=== PATIENT | male | born 1960 | race Caucasian/White ===

== ENCOUNTER 2016-09-30 05:49 | Day surgery (SDC) | payer BC, OTHER ==
[2016-09-28 11:32] VITALS: BMI 32.5
[2016-09-30] MEDS ORDERED: BUPIVACAINE HCL/PF 2.5 MG/ML - 30 ML VIAL IJ ONE (07:12)
[2016-09-30] MEDS ORDERED: MIDAZOLAM HCL 2 MG/2 ML SINGLE DOSE VIAL ONE ×4 (07:14→09:59)
[2016-09-30] MEDS ORDERED: DEXAMETHASONE SOD PHOSPHATE/PF 10 MG/ML SDV ONE (07:14)
[2016-09-30] MEDS ORDERED: BUPIVACAINE HCL/PF (5 MG/ML) 30 ML VIAL IJ ONE (07:15)
[2016-09-30] MEDS ORDERED: ceFAZolin SODIUM 1 GM VIAL IVPB ONE (08:07)
[2016-09-30] MEDS ORDERED: ONDANSETRON 4 MG/2 ML VIAL ONE (08:55)
[2016-09-30] MEDS ORDERED: PROPOFOL 20 ML ONE (10:05)
[2016-09-30] MEDS ORDERED: GUM MASTIC/STORAX/MSAL/ALCOHOL 1 DRP DROPSBTL MC ONE (10:27)
[2016-09-30] MEDS ORDERED: ONDANSETRON 4 MG/2 ML VIAL IVPUSH PRN (11:45)
[2016-09-30] MEDS ORDERED: oxyCODONE HCL 5 MG TABLET PO PRN (11:45)
[2016-09-30] MEDS ORDERED: PROMETHAZINE HCL 25 MG/1 ML VIAL IVPUSH PRN (11:46)
[2016-09-30 13:43] VITALS: TEMP 97.6
[2016-09-30 14:01] VITALS: BP 122/72; PULSE 68
--- NOTE | 2016-10-01 00:45 | OP ---
DATE OF OPERATION: 09/30/2016 PREOPERATIVE DIAGNOSIS: Left chronic recurrent quadriceps rupture. POSTOPERATIVE DIAGNOSIS: Left chronic recurrent quadriceps rupture. PROCEDURE: Left quadriceps tendon and partial repair combined with allograft reconstruction. SURGEON: Yaima Malave M.D. PIECER: Karina Rosa, [facility], whose skillful assistance was necessary for the safe and timely performance of this procedure. Ms. Rosa was able to provide retraction, assist in the insertion of orthopedic hardware, assist in patient positioning during the procedure. BLOOD LOSS: 150 mL. POSTOPERATIVE CONDITION: Stable. IMPLANTS: A 4-0 cannulated screw x 23 mm with washer x1, swivel lock anchors x2 , 4.5 mm. ANESTHESIA TYPE: Spinal. INDICATION: This is a pleasant gentleman who had already undergone quadriceps repair followed by revision quadriceps repair and who was noting continued difficulty ambulating. He was found to have a palpable gap. MRI confirmed a complete re-rupture of his quadriceps. Treatment options were discussed including nonoperative management, possibly bracing versus operative management with a combined repair reconstruction procedure. We reviewed surgical risks in detail including bleeding, infection, neurovascular injury, need for further surgery, postoperative pain and stiffness, recurrence, rupture. We discussed the postoperative rehabilitation protocol, being in a cast for 6 weeks. We reviewed medical risks such as heart attack, stroke, DVT, PE, and . We discussed preoperative DVT prophylaxis with aspirin, and the use of antibiotics prior to surgery. I addressed all of the patient's questions. He voiced understanding, elected to proceed. PROCEDURE: Patient was brought to the operating room where spinal anesthesia was administered. Left lower extremity was then prepped and draped in the usual sterile fashion. A preoperative dose of antibiotics is given, and the usual timeout procedure is performed. At this point, utilizing the primary incision and incised using a 10 blade. Electrocautery was used to maintain hemostasis. Careful dissection was made through the scarred down tissue here, finally identifying a portion of the quadriceps tendon which was encased significant scar tissue. One of the anchors was identified, and it remained attached to the distal quadriceps tendon via suture. The quadriceps tendon was now debrided. Multiple previous sutures were removed. The tendon using blunt dissection was freed from multiple adhesions to the surrounding soft tissues. The tendon did seem to be laminated with the vastus intermedius was retracted and scarred into the anterior femoral surface, and the rectus portion more retracted medially. Vastus lateralis was most retracted and somewhat deficient. The tendon ends were debrided of any nonviable tissue. Attention was now turned towards the patella. Using electrocautery, the tissue was debrided off the proximal pole. Utilizing a rongeur as well as curets, the bone was debrided down to bleeding tissue. A trough was created dorsally on the patella, utilizing an oscillating saw 10 mm wide x 20 mm in length. An osteotome was then used to remove the bone block approximately 5 to 10 mm in depth. A curet was then used to create a more square trough. The previous suture anchor locations were now drilled out using a 3-5 drill bit. They were drilled in further than previous. They were then tapped. Two swivel lock anchors were now inserted. These were done on the medial and lateral aspects. In the trough, 2-0 drill bit was used to create channels and a fiber tape suture was passed out the distal pole of the patella as well. Meanwhile, on the back table, the graft was prepared to match the size of the trough. The bone block was then inserted into the patella. A K-wire was placed distally, and the distal tip of the K-wire was visualized to be just at the articular surface. Screw length was then measured. It was overdrilled with the 3-5 drill bit on the near cortex of the graft only. A 26-mm screw and washer was then measured and inserted, securing the bone blocks in place. The suture anchors were now used in marjorie technique to retrieve down the quadriceps tendon at its most proximal. Vastus intermedius was able to be directly repaired. The VMO and a portion of the rectus was directly repaired as well. The vastus lateralis was not able to be directly repaired. The remaining anchor sutures were then used to reinforce the repair. The Achilles allograft was now laid down on top of the vastus lateralis portion, and sutured into the vastus lateralis tendon utilizing number 1 Vicryl as well as some of the leftover Fiberwire and fiber tape sutures from the suture anchors. The most proximal portion to the graft was then terminated at proximal portion of the tendon. The remaining graft was used to create and augment which was used in the more central portion of the repair, and again fixated using number 1 Vicryl as well. The wound was now copiously irrigated. The joint now appeared sealed off completely. The deep tissue was approximated using number 1 Vicryl, subcutaneous tissue was approximated using 2-0 Vicryl, the skin was closed using running 2-0 nylon. Sterile dressings were placed. The patient was placed into a cylinder cast. He was transferred to recovery room in stable condition. YAIMA MALAVE M.D. SON/[id number] MTDD
== END 2016-09-30 12:45 | disposition home or self-care (01) ==
LOC: FASU 05:49
PROVIDERS: ATTEND Orthopaedic Surgery Sports Medicine
PROC: 0LQM0ZZ Repair Left Upper Leg Tendon, Open Approach (ICD-10-PCS; 2016-09-30)
PROC: 0LU Tendons, Supplement (ICD-10-PCS; 2016-09-30)
PROC: 0LQM0ZZ Repair Left Upper Leg Tendon, Open Approach (ICD-10-PCS; principal; 2016-09-30 08:19)
DX: M66.852 Spontaneous rupture of other tendons, left thigh (principal)
CPT/HCPCS: 87070; 87075; 87205; 94760